=== PATIENT | female | born 1985 | race Caucasian/White ===

== ENCOUNTER → 2016-07-27 | Day surgery (SDC) | payer BC ==
[2016-07-12 13:22] VITALS: Ht 157.5 cm; Wt 58.2 kg
--- NOTE | 2016-07-24 10:33 | HISTORY & PHYSICAL EXAMINATION ---
DATE OF ADMISSION: 07/27/16 CHIEF COMPLAINT: Desire for permanent sterilization. HISTORY OF PRESENT ILLNESS: The patient is a 30-year-old 13, para 3. General health is good. She is on Wellbutrin 300 mg extended release once in the morning. She is uncertain when her last menstrual period. She is using a NuvaRing for control. She has been instructed to continue to use the ring until after the tubal ligation is done. She is presently being scheduled for laparoscopic tubal ligation. She has been informed of the nature of the procedure of tubal ligation including the fact that this procedure is intended to result in permanent and irreversible sterility and that the procedure can fail and the patient get despite having had her tubes tied. She has also been made aware of alternative temporary forms of control. PAST MEDICAL HISTORY: Three children in good health. ALLERGIES: ALLERGIC TO PENICILLIN, CODEINE, AND MORPHINE. PAST SURGICAL HISTORY: She has had appendectomy. She has had D\T\C, D\T\E and she had laparoscopic eval for endometriosis. SOCIAL HISTORY: She is a half pack a day smoker for 11 years. She has quit. No history of excessive alcohol intake. 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 FAMILY HISTORY: Mom is 52 in good health, dad 62 in good health. Has 2 brothers in good health. REVIEW OF SYSTEMS: HEAD: No symptoms of frequent or severe headaches. EYES: No symptoms of blurred vision, double vision. EARS: No symptoms of frequent ear infections, difficulty hearing. NOSE: No symptoms of frequent nosebleeds, difficulty breathing through her nose. THROAT: No symptoms of frequent or severe sore throats, difficulty swallowing. RESPIRATORY SYSTEM: No history of asthma, chest pain, shortness of breath. PHYSICAL EXAMINATION: GENERAL: Well developed, well-nourished 30-year-old white female, alert, oriented x3 and cooperative in no acute distress, appears stated age. EYES: Conjunctivae are pink. Sclerae are white. No evidence of jaundice. EARS: Had normal light reflex bilaterally. NOSE: Had normal mucosa. Septum is midline. There were no polyps. THROAT: No erythema or evidence of infection. Teeth are in good state of repair. HEAD: Normocephalic, normal distribution of hair. NECK: Supple. Trachea midline. Thyroid is not enlarged. There is no adenopathy appreciated. Both carotids are of good intensity. CHEST: Clear to auscultation and percussion. No wheezes, rales or rhonchi appreciated. HEART: Had regular rhythm. S1 and S2 are normal. BREASTS: Normal. ABDOMEN: Revealed an umbilical ring. ABDOMEN: Soft and nontender. PELVIC: Normal appearing cervix. Uterus was anteverted, normal size. There are no adnexal masses appreciated. MUSCULOSKELETAL: Revealed no calf tenderness. IMPRESSIONS OF THIS CASE: Status post appendectomy, status post dilatation and curettage, status post dilatation and evacuation, status post laparoscopic evaluation, endometriosis, desire for permanent sterilization. MTDD
[2016-07-24 10:52] LABS: BASO % 0.4 %; BASO ABS # 0.02 K/uL (0-0.2); COMPLETE YES; EOS % 1.7 %; HEMATOCRIT 40.6 % (37-47); IG% 0.4 %; LYMPH % 30.6 %; LYMPH ABS # 1.66 K/uL (1.2-3.4); MEAN CELL VOLUME 88.8 fL (80-100); MEAN CORPUSCULAR HEMOGLOBIN 30.9 pg (25-34); MEAN CORPUSCULAR HGB CONC 34.7 g/dl (32-36); MEAN PLATELET VOLUME 10.2 fL (7.4-10.4); MONO % 6.3 %; NEUT % 60.6 %; PLATELET COUNT 196 K/uL (130-400); RED BLOOD COUNT 4.57 M/uL (4.2-5.4); WHITE BLOOD COUNT 5.42 K/uL (4.8-10.8)
[2016-07-24 11:12] LABS: PREG INTERNAL NEGATIVE QC NEG CLEAR BACKGROUND; PREG INTERNAL POSITIVE QC POS CONTROL LINE
[~2016-07-27] VITALS: Ht 157.5 cm; Wt 58.2 kg
[~2016-07-27] MED LIST: ATROPINE SULFATE 0.1 MG/ML 5ML SYR IV PRN; BUPIVACAINE 0.5 % 5 MG/1 ML PF 10ML VIAL ONE; BUPIVACAINE/EPINEPHRINE 0.5% MPF 1:200,000 30 ML VIAL ONE; BUPRTAB51 PO; DEXAMETHASONE SOD INJ 4 MG/ML VIAL ONE; ESCI10TA17 PO; EpHEDrine SULFATE INJ 50 MG/ML AMP IV PRN; FENTANYL CITRATE INJ 50 MCG/1 ML 2 ML VIAL ONE; GLYCOPYRROLATE INJ 0.2 MG/ML VIAL ONE; IBUPROFEN 600 MG TAB PO PRN; KETOROLAC TROMETHAMINE 30 MG/ML VIAL IV. PRN; KETOROLAC TROMETHAMINE 30 MG/ML VIAL ONE; LIDOCAINE HCL 2% 2 ML VIAL (20MG/ML) ONE; LORA-741 PO; MIDAZOLAM HCL 1 MG/ML 2ML VIAL ONE; MULT-506 PO; NEOSTIGMINE METHYLSULFATE 5 MG/5 ML SYR ONE; ONDANSETRON INJ 2 MG/ML 2 ML VIAL IV PRN; ONDANSETRON INJ 2 MG/ML 2 ML VIAL ONE; PROPOFOL IV EMULSION 10 MG/ML 20 ML VIAL IV ONE; ROCURONIUM BROMIDE 10 MG/ML 5 ML VIAL ONE; SODIUM CHLORIDE 0.9% 1000ML 1,000 ML IV SCH
[2016-07-27] MEDS: SODIUM CHLORIDE 0.9% INJ 10 ML VIAL ONE ×2 (09:23→11:17)
--- NOTE | 2016-07-27 09:26 | History & Physical Bridge Note ---
H&P Re-Evaluation Bridge Note: I have examined the patient, reviewed the History & Physical and in the interval since the performance of the History & Physical I have noted the following changes of clinical significance: No changes noted
--- NOTE | 2016-07-27 11:32 | [facility] Operative Report ---
Operative Report Operative Date Jul 27, 2016. Pre-Operative Diagnosis Desires Sterilization Post-Operative Diagnosis Same Procedure(s) Performed Laparoscopic Tubal Sterilization Surgeon Dr. Vega Admission Nurse Coordinator Surgeon(s) None Estimated Blood Loss 5 mL Findings NORMAL PELVIS Specimens None Disposition Recovery Room / PACU I attest to the content of the Intraoperative Record and any orders documented therein. Any exceptions are noted below.
--- NOTE | 2016-07-27 11:35 | Discharge Instructions-SurgCtr ---
Discharge Instructions Date of Service Jul 27, 2016. Visit Reason for Visit: Desire For Sterilization;Pre-Op Z30.2 Discharge Discharge Diagnosis / Problem: DESIRE FOR PERMANENT Discharge Goals Goal(s): Improve function Activity Recommendations Activity Limitations: as noted below SPECIAL CARE INSTRUCTIONS: * Check temperature twice daily for one week. Report any elevation over 100.4 degrees Fahrenheit (38.0 degrees Celsius). * Call office in the next few days for return appointment. * You may experience some vaginal spotting and/or bleeding, this is normal for one or two weeks and should not alarm you. * Post-operative discomfort may consist of a sore throat, a "bloated" feeling and pain in the shoulders. These are normal symptoms which usually only last for two or three days. FOLLOW UP VISIT: Keep any scheduled doctor appointments. Anesthesia . Post Anesthesia Instructions: If you have had General Anesthesia or IV Sedation: * Do not drive today. * Resume driving when surgeon permits. * Do not make important decisions or sign legal documents today. * Call surgeon for: 1. Temperature elevations greater than 101 degrees F. 2. Uncontrollable pain. 3. Excessive bleeding. 4. Persistent nausea and vomiting. 5. Medication intolerance (nausea, vomiting or rash). * For nausea and vomiting use only clear liquids such as: tea, soda, bouillon until nausea subsides, then gradually increase diet as tolerated. * If you have any concerns or questions, call your surgeon's office. If physician is unavailable and it is an emergency, call 911 or go to the nearest emergency room. . Diet Recommendations Home Diet: resume previous diet Procedures Procedures Performed: Laparoscopic Tubal Sterilization Pending Studies Studies pending at discharge: no Medical Emergencies . Who to Call and When: Medical Emergencies: If at any time you feel your situation is an emergency, please call 911 immediately. . Non-Emergent Contact Non-Emergency issues call your: Saw Cleaner Call Non-Emergent contact if: temperature is above 100.5 . . "Provider Documentation" section prepared by Sean Vega.
--- NOTE | 2016-07-27 11:47 | OPERATIVE REPORT ---
DATE OF OPERATION: 07/27/2016 PROCEDURE: Laparoscopic tubal ligation. INDICATIONS FOR SURGERY: Desire for permanent sterilization. PREOPERATIVE DIAGNOSIS: Desire for permanent sterilization. POSTOPERATIVE DIAGNOSES: Same, normal pelvis. SURGEON: Dr. Vega. ESTIMATED BLOOD LOSS: 5 mL. ANESTHESIA: General. OPERATIVE FINDINGS AND PROCEDURE: The patient was brought to the OR table, correctly identified by armband and conversation. General anesthesia was administered. Perineum, vagina and lower abdomen were painted with Betadine paint, draped in usual sterile fashion. Catheter was used to empty the bladder. Careful pelvic exam under anesthesia revealed an anteverted uterus. There were no adnexal masses appreciated. Weighted speculum was placed in the posterior vagina. Anterior lip of the cervix grasped with single tooth tenaculum. An acorn cannula was inserted to cervical canal for manipulation of the uterus. Attention was now turned to the umbilical area. Subumbilical area was infiltrated with lidocaine with epinephrine. Stab wound was placed and a Veress needle was inserted into the abdominal cavity. 2-1/2 liters of carbon dioxide gas was passed under low pressure. Incision was then widened laterally and a large cannula and trocar was inserted. Trocar was removed and laparoscope was inserted. A second puncture site was made in the midline 3 fingerbreadths above the pubic symphysis, this area was also infiltrated with local with epinephrine. Stab wound was placed and a 5 mm trocar and sleeve was inserted under direct visualization. Trocar was removed. A blunt probe was used to manipulate the bowels out of the pelvic cavity and expose the pelvis. Cul-de-sac was normal, tubes were freely mobile, ovaries were mobile and bladder flap was mobile. Each fallopian tube was grasped in the mid portion of the tube and cauterized in 2 consecutive and adjacent areas. The cautery going through the tube and into the mesosalpinx, this was done for both the right and left fallopian tube and then the laparoscopic scissors was used to divide the cauterized areas. Photographs were taken of the cauterized and divided tubes. Following this, gas was expressed manually. Ports were cleansed with Betadine and sutured with interrupted Vicryl. I attest to the content of the Intraoperative Record and any orders documented therein. Any exceptio ns are noted below.
[2016-07-27] MEDS: FENTANYL CITRATE INJ 50 MCG/1 ML 2 ML VIAL IV PRN ×2 (12:05→12:12)
--- NOTE | 2016-07-27 12:13 | Anesthesia Progress Nt - [facility] ---
Anesthesia Post Op Note Date & Time Jul 27, 2016 at 12:13 Vital Signs Pain Intensity: 4.0 Vital Signs Past 12 Hours Date Time Temp Pulse Resp B/P Pulse Ox O2 Delivery O2 Flow Rate FiO2 07/27/16 11:42 37 130 16 122/110 100 Mask 6 07/27/16 09:11 36.8 82 16 134/85 98 Room Air Notes Mental Status: alert / awake / arousable, participated in evaluation Pt Amnestic to Procedure: Yes Nausea / Vomiting: adequately controlled Pain: adequately controlled Airway Patency, RR, SpO2: stable & adequate BP & HR: stable & adequate Hydration State: stable & adequate Anesthetic Complications: no major complications apparent
[2016-07-27 12:27] VITALS: TEMP 36.8
[2016-07-27 12:47] VITALS: BP 131/88; PULSE 93; O2SAT 98
== END | disposition home or self-care (01) ==
LOC: X.SURG 08:51
PROVIDERS: ATTEND Obstetrics & Gynecology
DX: Z30.9 Encounter for contraceptive management, unspecified (principal); Z90.49 Acquired absence of other specified parts of digestive tract; Z98.890 Other specified postprocedural states; Z88.0 Allergy status to penicillin; Z88.5 Allergy status to narcotic agent

== ENCOUNTER 2017-01-19 22:40 | Emergency (ER) | payer BC ==
[~2017-01-19] VITALS: Ht 154.9 cm; Wt 60.4 kg
[~2017-01-19 22:40] MED LIST changes: -ATROPINE SULFATE 0.1 MG/ML 5ML SYR IV PRN; -BUPIVACAINE 0.5 % 5 MG/1 ML PF 10ML VIAL ONE; -BUPIVACAINE/EPINEPHRINE 0.5% MPF 1:200,000 30 ML VIAL ONE; -DEXAMETHASONE SOD INJ 4 MG/ML VIAL ONE; -EpHEDrine SULFATE INJ 50 MG/ML AMP IV PRN; -FENTANYL CITRATE INJ 50 MCG/1 ML 2 ML VIAL ONE; -GLYCOPYRROLATE INJ 0.2 MG/ML VIAL ONE; -IBUPROFEN 600 MG TAB PO PRN; -KETOROLAC TROMETHAMINE 30 MG/ML VIAL IV. PRN; -KETOROLAC TROMETHAMINE 30 MG/ML VIAL ONE; -LIDOCAINE HCL 2% 2 ML VIAL (20MG/ML) ONE; -MIDAZOLAM HCL 1 MG/ML 2ML VIAL ONE; -NEOSTIGMINE METHYLSULFATE 5 MG/5 ML SYR ONE; -ONDANSETRON INJ 2 MG/ML 2 ML VIAL IV PRN; -ONDANSETRON INJ 2 MG/ML 2 ML VIAL ONE; -PROPOFOL IV EMULSION 10 MG/ML 20 ML VIAL IV ONE; -ROCURONIUM BROMIDE 10 MG/ML 5 ML VIAL ONE; -SODIUM CHLORIDE 0.9% 1000ML 1,000 ML IV SCH
[2017-01-19 22:49] VITALS: TEMP 36.4; Ht 154.9 cm; Wt 60.4 kg
--- NOTE | 2017-01-19 23:11 | EMERGENCY ROOM VISIT NOTE ---
History First contact with patient: 22:53 Chief Complaint: SORETHROAT Stated Complaint: SORETHROAT/TONGUE,FEVER,COUGH History of Present Illness The patient is a 31 year old female who presents to the Emergency Room with complaints of sore throat for the past 3-4 days. She states that her tongue feels swollen. It attaches in the back of her mouth. The patient also states for the past week she has been sneezing a lot. She denies any head congestion but does admit to some postnasal drainage. The patient also states today she was running a low-grade fever of 99.8-100.4. She has been taking Tylenol for the fever. The patient also states that she has been coughing for the past 2-3 days. The patient denies any chest tightness or chest pain. The patient admits to tobacco use. Review of Systems 10 system review was performed and was negative unless stated otherwise history of present illness. Past Medical/Surgical History Medical Problems: (1) Calculus Of Kidney (2) Calculus Of Ureter (3) COUGH (4) Headache Social History Smoking Status: Current Every Day Smoker Alcohol Use: none Drug Use: none Occupation Status: employed Current/Historical Medications Scheduled Bupropion Hcl (Wellbutrin Xl), 300 MG PO QAM Escitalopram (Lexapro), 10 MG PO HS Multivitamin (Multivitamin), 1 TAB PO QAM Scheduled PRN Lorazepam (Ativan), 0.5 MG PO Q6H PRN for Anxiety Physical Exam Vital Signs Date Time Temp Pulse Resp B/P (MAP) Pulse Ox O2 Delivery O2 Flow Rate FiO2 01/19/17 23:05 98 Room Air 01/19/17 22:49 36.4 94 18 134/88 99 Room Air Physical Exam PHYSICAL EXAM: Vital Signs were reviewed: Reviewed Nurse's notes and agree. Oxygen saturation is 99 % on room air which is normal . GENERAL: 31-year-old female appears in no acute distress. MENTAL STATUS: Alert, oriented, coherent. EARS: Canals clear. TMs good light reflex, no erythema or fluid level noted. NOSE: Nasal mucosa with moderate erythema engorgement. PHARYNX: Minimal erythema , no edema noted. No exudate noted. Airway is adequate. NECK: Supple, tender to palpation over the anterior cervical chains bilaterally but no palpable lymphadenopathy... LUNGS: Clear to auscultation without wheezes rales or rhonchi. CARDIAC: Regular rate and rhythm without murmur. SKIN: No rashes noted. Medical Decision & Procedures ED Course The patient was evaluated. Rapid strep was negative, culture is pending. The patient was informed of the findings. The patient was discharged home in stable condition. Medical Decision Differential diagnosis include strep pharyngitis, URI, viral pharyngitis, Impression Primary Impression: Sore throat Additional Impression: URI (upper respiratory infection) Departure Information Dispostion Home / Self-Care Condition GOOD Referrals Sean Vega M.D. (PCP) Forms HOME CARE DOCUMENTATION FORM, IMPORTANT VISIT INFORMATION Patient Instructions [facility], Sore Throat - [facility] Additional Instructions Follow sore throat handouts instructions. Call in 24 hours for throat culture results. Continue Tylenol and/or ibuprofen as needed for fever or pain. Recommend aegw-eim-ersbivr antihistamine such as Claritin daily for 5-7 days. If symptoms are not improving in 3-4 days, follow-up with your family doctor. Problem Qualifiers Additional Impression: URI (upper respiratory infection) URI type: unspecified viral URI Qualified Codes: J06.9 - Acute upper respiratory infection, unspecified; B97.89 - Other viral agents as the cause of diseases classified elsewhere
[2017-01-19 23:28] VITALS: BP 131/86; PULSE 88; O2SAT 99
== END 2017-01-19 23:28 | disposition home or self-care (01) ==
LOC: C.EDB 22:42 → C.EDC 23:28
DX: J02.9 Acute pharyngitis, unspecified (principal); F17.210 Nicotine dependence, cigarettes, uncomplicated; Z87.442 Personal history of urinary calculi; Z79.899 Other long term (current) drug therapy

== ENCOUNTER → 2017-03-07 | Outpatient (CLI) | payer BC, OTHER ==
[~2017-03-07] MED LIST changes: -LORA-741 PO
== END | disposition home or self-care (01) ==
LOC: C.LABSPEC 12:04
PROVIDERS: ATTEND Physician Assistant
DX: N39.0 Urinary tract infection, site not specified (principal)

== ENCOUNTER → 2017-06-28 | Outpatient (CLI) | payer BC, OTHER | END | disposition home or self-care (01) | LOC: C.PAPS 15:26 | PROVIDERS: ATTEND Obstetrics & Gynecology | DX: Z01.419 Encounter for gynecological examination (general) (routine) without abnormal findings (principal) ==

== ENCOUNTER 2022-03-10 08:04 | Inpatient (IN) ==
--- NOTE | 2022-02-22 09:20 | PAT Medication Instructions ---
Medication Instructions Date of Service February 22, 2022 Home Medications Medication Instructions Recorded alprazolam 0.5 mg tablet (Xanax) 0.5 mg PO TID PRN Anxiety #90 tabs 01/18/21 bupropion HCl 150 mg 24 hr tablet, 150 mg PO QPM #30 tabs 10/06/21 extended release bupropion HCl 300 mg 24 hr tablet, 300 mg PO QAM #30 tabs 10/06/21 extended release ciprofloxacin HCl 500 mg tablet 500 mg PO BID 7 days #14 tabs 11/07/21 fluocinonide 0.05 % topical 1 applic topical DAILY PRN rash 01/20/22 ointment #15 grams fluconazole 150 mg tablet 150 mg PO ONCE #1 tab 02/17/22 (Diflucan) sulfamethoxazole 800 1 tab PO BID 7 days #14 tabs 02/17/22 mg-trimethoprim 160 mg tablet (Bactrim DS) alprazolam 0.5 mg tablet (Xanax) 0.5 mg PO TID PRN bupropion HCl 150 mg 24 hr tablet, extended release 150 mg PO QPM bupropion HCl 300 mg 24 hr tablet, extended release 300 mg PO QAM ciprofloxacin HCl 500 mg tablet 500 mg PO BID fluocinonide 0.05 % topical ointment 1 applic topical DAILY PRN fluconazole 150 mg tablet (Diflucan) 150 mg PO ONCE sulfamethoxazole 800 mg-trimethoprim 160 mg tablet (Bactrim DS) 1 tab PO BID Continue as directed fluconazole 150 mg tablet (Diflucan) 150 mg PO ONCE STOP taking 24 hours before surgery fluocinonide 0.05 % topical ointment 1 applic topical DAILY PRN Take morning of surgery With a small sip of water, OTHERWISE NOTHING TO EAT OR DRINK AFTER MIDNIGHT: alprazolam 0.5 mg tablet (Xanax) 0.5 mg PO TID PRN(if needed) bupropion HCl 300 mg 24 hr tablet, extended release 300 mg PO QAM ciprofloxacin HCl 500 mg tablet 500 mg PO BID sulfamethoxazole 800 mg-trimethoprim 160 mg tablet (Bactrim DS) 1 tab PO BID Take evening before surgery alprazolam 0.5 mg tablet (Xanax) 0.5 mg PO TID PRN(if needed) bupropion HCl 150 mg 24 hr tablet, extended release 150 mg PO QPM ciprofloxacin HCl 500 mg tablet 500 mg PO BID sulfamethoxazole 800 mg-trimethoprim 160 mg tablet (Bactrim DS) 1 tab PO BID Other Notes If you have any questions please call us at [phone] or [phone] or [phone] or [phone]
--- NOTE | 2022-02-23 10:14 | Anesthesiology Consultation ---
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 Zhu who advised pt acceptable to proceed and does not need further evaluation, testing or intervention from his standpoint. - check urine test STAT am DOS. - PTSD: pt has concerns with OR restraints, requests she be asleep before applied. OR notified. Chart Review Chart Review: Acceptable Risk for Surgery and Patient seen in Pre Admission Testing Teaching & Discussion Pre-Anesthesia Teaching/Discussion Notes: Instructed NPO after midnight before surgery, except medications with 15 cc of water. Medication instructions provided according to the PAT guidelines. History Surgery Operation Date: 03/10/22 13:35 Proposed Procedures p Total Abdominal Hysterectomy, Preservation of the Ovaries - Sean Vega MD Height/Weight Height: 5 ft 1 in Weight: 54.9 kg Allergies Allergy/AdvReac Type Severity Reaction Status Date / Time morphine Allergy Severe SEVERE Verified 02/21/22 15:35 HEADACHES AND NECK PAIN Penicillins Allergy Intermediate HIVES, Verified 02/21/22 15:35 NAUSEA codeine AdvReac Intermediate NAUSEA, Verified 02/21/22 15:35 VOMITING Medications Home Medications Medication Instructions Recorded Confirmed Last Taken alprazolam 0.5 mg tablet (Xanax) 0.5 mg PO TID PRN Anxiety #90 tabs 01/18/21 02/21/22 06/15/21 bupropion HCl 150 mg 24 hr tablet, 150 mg PO QPM #30 tabs 10/06/21 02/21/22 Unknown extended release bupropion HCl 300 mg 24 hr tablet, 300 mg PO QAM #30 tabs 10/06/21 02/21/22 Unknown extended release ciprofloxacin HCl 500 mg tablet 500 mg PO BID 7 days #14 tabs 11/07/21 02/21/22 Unknown fluocinonide 0.05 % topical 1 applic topical DAILY PRN rash 01/20/22 02/21/22 Unknown ointment #15 grams fluconazole 150 mg tablet 150 mg PO ONCE #1 tab 02/17/22 02/21/22 Unknown (Diflucan) sulfamethoxazole 800 1 tab PO BID 7 days #14 tabs 02/17/22 02/21/22 Unknown mg-trimethoprim 160 mg tablet (Bactrim DS) Past Medical History Medical History (Updated 02/23/22 @ 15:42 by Alejandra Reddy PA-C) Anxiety and depression COVID-19 DX'D 06/2021 HOME TEST-SOB, LOSS APETITE, HEADACHE-RECOVERED AT HOME-GETS SOB MORE EASILY SINCE COVID RECOVERY GERD (gastroesophageal reflux disease) controlled, stable per pt Kidney stones Migraine Post traumatic stress disorder pt has concerns with OR restraints, requests she be asleep before applied Pulmonary nodule Seizure following second COVID vaccine dose > 1 yr ago; denies any additional episodes of altered consciousness Suicidal ideations HX 2007 Urinary tract infection FREQUENT Patient denies h/o stroke, heart attack, heart failure, DM, HTN, blood clots or blood transfusions. Exercise / Class Metabolic Activity III < 4 Walking/Shop/Light housework (mild SOB with usual activities ongoing since having COVID earlier this year, denies change or worsening, denies chest discomfort) Past Family History Family History Grandmother Breast cancer Myocardial infarction Father Diabetes Aunt Ovarian cancer Denies family history of Prostate cancer Past Surgical History Surgical History History of appendectomy History of cystoscopy STENT FOR KIDNEY STONES History of laparoscopy History of lithotripsy History of tubal ligation History of wisdom tooth extraction S/P dilation and curettage Past Anesthesia History No Hx of Anesthesia Complications and No Family Hx of Anesthesia Complications History of PONV No Hx of PONV and Hx of Motion Sickness Social History Smoking Status: Current every day smoker tobacco type: cigarettes Smoking cigarettes per day: 4-5 CIGS A DAY-advised Do You Dip or Chew Tobacco: No Hx Alcohol Use: Yes Alcohol type: hard liquor alcohol intake frequency: a few times a month Hx Substance Use: No substance use type: does not use Review of Systems Patient denies chest pain, snoring, witnessed apneas, fever, chills, cough, wheezing, or palpitations. Physical Exam Vital Signs Vitals BP 119/80 P 72 TEMP 98 SP02 98% on RA RESP 18 Physical Full cervical extension range of motion without pain TMD 3.5 finger breadths Mallampati Score 1 Dentition: intact, several caps/crowns; denies chipped or loose teeth, implants or bridges Lungs: normal respiratory effort. Clear throughout to auscultation, no adventitious breath sounds Cardiac: regular rate and rhythm, no murmurs noted Carotid arteries: negative bruit bilat Lab Results Anesthesia Preop Results Results Anesthesia Widget: WBC 4.75 K/ul (4.8-10.8) L 02/23/22 Hgb 13.6 g/dl (12.0-16.0) 02/23/22 Hct 38.9 % (34.1-44.9) 02/23/22 Plt 260 K/uL (130-400) 02/23/22 Na 139 mmol/L (136-145) 02/23/22 K 3.7 mmol/L (3.5-5.1) 02/23/22 Cl 105 mmol/L (98-107) 02/23/22 CO2 29 mmol/L (21-32) 02/23/22 BUN 11 mg/dl (6-23) 02/23/22 Creat 0.88 mg/dl (0.6-1.2) 02/23/22 Glucose Level 92 mg/dl (70-99(Fasting)) 02/23/22 PT 11.0 Seconds (9.0-12.0) 02/23/22 PTT 26.9 Seconds (21.0-31.0) 02/23/22 INR 1.0 (0.9-1.1) 02/23/22 Blood Type A Positive 02/23/22 Antibody Screen NEGATIVE 02/23/22 Testing Electrocardiogram Date: 06/16/21 NSR with sinus arrhythmia, rate 77 bpm Chest X-Ray Date: 06/16/21 *1 view* No acute cardiopulmonary disease Cervical Spine Date: 08/26/21 CT There is no evidence of fracture or subluxation involving the cervical spine. Other Testing Head CT 08/26/21 No acute intracranial abnormality. Mild left supraorbital soft tissue swelling. Face CT 08/26/21 No fractures within the maxillofacial region. Mild left supraorbital soft tissue swelling. Chest CT 08/26/21 1. No acute abnormality and in particular no left rib fracture. 2. Multiple nodules are seen as above. Abdomen pelvis CT 08/26/21 Lung bases: The heart is normal in size and without pericardial effusion. The lung bases are clear. Liver: The contrast-enhanced liver is normal in size, contour, and attenuation. There is no intrahepatic biliary ductal dilatation. The hepatic veins and portal veins are patent. Gallbladder: There are gallstones with no CT evidence of acute cholecystitis. Spleen: Normal in size and attenuation. Pancreas: Unremarkable. Adrenal glands: Unremarkable. Kidneys: The contrast enhanced kidneys are normal in size and without hydronep hrosis. The kidneys enhance symmetrically. There is a 3 mm nonobstructing left renal calculus. Abdominal vasculature: The abdominal aorta is normal in course and caliber. Bowel: There is no bowel obstruction. Fecal retention is seen throughout the colon. The appendix is not identified and reported surgically absent. Peritoneum: There is no intraperitoneal free air or abdominal ascites. There is a small fat-containing umbilical hernia. Lymphadenopathy: None. Pelvic viscera: The bladder is normal as visualized. There are bilateral ovarian follicles. An involuting follicle is noted in the right ovary. Uterine fibroids are suggested. There is a small volume of free fluid in the cul-de-sac. A labial piercing is noted. Skeletal structures: The lumbosacral spine, bony pelvis, and proximal femora appear intact. No lytic or blastic lesions are seen. IMPRESSION: 1. There is no evidence of solid organ injury in the abdomen or pelvis. 2. A small volume of free fluid in the cul-de-sac is nonspecific and likely within physiologic limits. 3. No fracture is identified. 4. Cholelithiasis. 5. Left-sided nephrolithiasis. 6. Additional findings as above. Neck CTA 08/26/21 No occlusion, hemodynamically significant stenosis, or dissection in the major cervical arteries. COVID-19 Risk Screen Screening Information COVID-19 Screen Date: 02/23/22 Exposure 21 Days Family/Household +COVID Last 21 Days: No Exposure 10 Days Any COVID Exposure Last 10 Days: No Symptoms Last 10 Days Experienced COVID Sx Last 10 Days: No + COVID 0-90 Days COVID + in Last 0-90 Days: No
[~2022-03-10 08:04] MED LIST changes: +ACETAMINOPHEN 1000 MG/100 ML IV IV ONE; +ALLERGY Noted to ORDERED Medication SCH; -BUPRTAB51 PO; -ESCI10TA17 PO; +LR 15ML/HR IV SCH; -MULT-506 PO; +SUGAMMADEX SODIUM 200 MG/2 ML VIAL IV ONE
[2022-03-10] MEDS ORDERED: MIDAZOLAM HCL 1 MG/ML 2ML VIAL ONE (08:57)
[2022-03-10] MEDS ORDERED: DEXAMETHASONE SOD INJ 4 MG/ML VIAL ONE ×2 (08:57→11:28)
[2022-03-10] MEDS ORDERED: LIDOCAINE 2% MPF LOCAL 5 ML VIAL INFIL ONE ×2 (08:57→11:29)
[2022-03-10] MEDS ORDERED: ROCURONIUM BROMIDE 10 MG/ML 5 ML VIAL IV ONE ×4 (08:57→11:44)
[2022-03-10] MEDS ORDERED: PROPOFOL IV EMULSION 10 MG/ML 20 ML VIAL IV ONE ×2 (08:57→11:29)
[2022-03-10] MEDS ORDERED: ONDANSETRON INJ 2 MG/ML 2 ML VIAL ONE ×4 (08:57→12:45)
[2022-03-10] MEDS ORDERED: fentaNYL citrate 100 MCG/2 ML VIAL ONE ×2 (08:57→12:46)
[2022-03-10] MEDS ORDERED: SCOPOLAMINE 1 MG TDSY TD ONE ×2 (09:02→09:17)
[2022-03-10] MEDS ORDERED: ONDANSETRON INJ 2 MG/ML 2 ML VIAL IV PRN (09:08)
[2022-03-10] MEDS ORDERED: fentaNYL citrate 100 MCG/2 ML VIAL IV PRN (09:08)
[2022-03-10] MEDS ORDERED: LABETALOL HCL IV 5 MG/ML 20ML IV PRN (09:08)
[2022-03-10] MEDS ORDERED: MEPERIDINE HCL 25 MG/ML CARP/VIAL IV PRN (09:08)
[2022-03-10] MEDS ORDERED: ePHEDrine sulfate 50 MG/ML AMP IV PRN ×2 (09:08→09:09)
[2022-03-10] MEDS ORDERED: ATROPINE SULFATE 0.1 MG/ML 10ML SYR IV PRN (09:08)
[2022-03-10] MEDS ORDERED: PHENYLEPHRINE 100MCG/ML 5ML SYR IV PRN (09:08)
[2022-03-10] MEDS ORDERED: NALOXONE HCL 1 MG in SODIUM CHLORIDE 0.9% 1000ML 1,000 ML IV PRN (09:09)
[2022-03-10] MEDS ORDERED: MoRPHine SULFATE PF 1 MG/ML 10 ML AMP/VIAL INT SPINAL ONE (09:09)
[2022-03-10] MEDS ORDERED: NALBUPHINE HCL INJ 10 MG/ML AMP IV PRN (09:09)
[2022-03-10] MEDS ORDERED: NALOXONE HCL 0.4 MG/1 ML VIAL/CARP IV PRN (09:09)
[2022-03-10] MEDS ORDERED: NALOXONE HCL 0.08 MG in SYRINGE 1.8 ML IV PRN (09:09)
[2022-03-10] MEDS ORDERED: LACTATED RINGER'S 500 ML IV PRN (09:09)
[2022-03-10] MEDS ORDERED: SODIUM CHLORIDE 0.9% 1000ML 1,000 ML IV SCH (09:15)
[2022-03-10] MEDS ORDERED: DC INTRASPINAL MORPHINE SCH (09:15)
[2022-03-10] MEDS ORDERED: NO NARCOTICS OR SEDATIVES SCH (09:15)
[2022-03-10] MEDS ORDERED: MoRPHine SULFATE PF 1 MG/ML 10 ML AMP/VIAL ONE (10:43)
--- NOTE | 2022-03-10 10:53 | History & Physical Bridge Note ---
Date of Service March 10, 2022 History & Physical Bridge Note I have examined the patient, reviewed the History & Physical and in the interval since the performance of the History & Physical I have noted the following changes of clinical significance: no changes noted
--- NOTE | 2022-03-10 13:13 | Post Operative Brief Note ---
Immediate Post Op Note v1 Date of Surgery March 10, 2022 Pre & Post Diagnosis Operation Date: 03/10/22 09:50 Pre-Op Diagnosis: Fibroid Uterus, hypermenorrhea pelvic pain Post-Op Diagnosis: Fibroid Uterus, hypermenorrhea I identified the patient and participated in the time-out.: Yes Procedure Operation Date: 03/10/22 09:50 Actual Procedures p Total Abdominal Hysterectomy, Preservation of the Ovaries(Not Applicable) - Sean Vega MD Surgeon Sean Vega MD Mess Attendant Crew [facility] Estimated Blood Loss 200 Findings Consistent with Post-Op Diagnosis Drains Archer Catheter, Chace Drain (with one safety pin in the vaginal cuff) and Other Disposition Disposition: Recovery Room
[2022-03-10] MEDS ORDERED: MEPERIDINE HCL 50 MG/ML CARP ONE (13:29)
[2022-03-10] MEDS ORDERED: KETOROLAC 30 MG/ML VIAL ONE (13:29)
[2022-03-10] MEDS ORDERED: KETOROLAC 30 MG/ML VIAL IV ONE (13:30)
[2022-03-10] MEDS ORDERED: MEPERIDINE HCL 25 MG/ML CARP/VIAL IV ONE (13:31)
[2022-03-10] MEDS: diphenhydrAMINE 50 MG/ML VIAL IV PRN ×2 (13:57→20:23)
--- NOTE | 2022-03-10 14:28 | Operative Report (OR) ---
DATE OF PROCEDURE: 03/10/2022. PROCEDURE: Total abdominal hysterectomy. INDICATIONS FOR SURGERY: Pelvic pain, fibroid uterus, increasing in size. PREOPERATIVE DIAGNOSES: Hypermenorrhea, pelvic pain, fibroid uterus, increasing in size. POSTOPERATIVE DIAGNOSES: Hypermenorrhea, pelvic pain, fibroid uterus, increasing in size. Pathology pending. SURGEON: Keturah Vega MD COMPLIANCE ADMINISTRATOR: Yazan Tan MD. ESTIMATED BLOOD LOSS: 200 mL. ANESTHESIA: General with spinal narcotics. OPERATIVE FINDINGS AND PROCEDURE: The patient was brought to the OR table. Spinal narcotics were ad ministered. She was given general anesthesia. Vaginal prep was performed. The Archer catheter was i nserted aseptically in the bladder, connected to gravity drainage. Lower abdomen was painted with an alcohol based sterilizing solution and draped in the usual sterile fashion. Pfannenstiel incision w as made and carried down to the anterior fascia by sharp dissection. Hemostasis was secured by elect rocauterization. Fascia was incised transversely from the underlying muscle by blunt and sharp dissection. Recti muscles were in the midline exposing the peritoneum, which was car efully raised and entered. Then, an O'Miguel Angel-O'Lewis self-retraining retractor was inserted into the incision and several moist laparotomy packs were used to retract the intestines and provide adequ ate exposure of the pelvic cavity. At this time, we could see both tubes, which were status post tub al ligation. Fibroid uterus on the patient's left side about 5-6 cm in diameter and it went down to about the fundal cervical junction. Round ligaments on either side were clamped proximally, then dist ally. They were ligated with a transfixion suture and tagged and then distal to that with a plain si lk tie for additional hemostasis. Incision was made above the vesicouterine fold. Bladder was under mined bluntly. Posterior leaf of the broad ligament was punched through bluntly. The attachment of the ovary and tube to the fundus of the uterus was clamped proximally and distally, cut with electroc auterization. Then, the distal stump of the tube and ovarian ligament were first ligated with a huffman sfixion suture of chromic catgut and tied and then re-ligated with a free silk tie for hemostasis. T his was done on both the right and left side. The bladder was continued to be advanced out of the op erative field. The uterine vessels on either side were doubly clamped at the junction of the cervix and the fundus, cut and then doubly ligated with a chromic gut suture. We continued to advance the b ladder off the operative field. The cardinal ligaments were dissected off by sliding off the cervix with a curved [place] on the right and left side cutting with a stump and then ligating with a chromic gut suture. This was done in 3 steps because of the length of the cardinal ligament. We then used electrocauterization to shell the cervical specimen out and entered the vaginal cuff. We thus excise d the surgical specimen consisting of a fibroid uterus and cervix. The vaginal cuff was then sutured to the stumps of the cardinal ligaments on each side at the angles by going in and out of the cuff a nd then re-picking up the cuff and then tying it to the cardinal ligaments. This was done on both th e right and left side. Then, the vagina was approximated front to back at each angle using a chromic gut suture, which was anchored in the cardinal ligament, went from the cardinal ligament towards the center of the vagina, then from the center of the vagina to the cardinal ligament and then tied and then cut. The mid portion of the vaginal cuff was whipstitched open with a continuous chromic gut prince ture. After this, the posterior uterosacral ligaments were brought together with a heavy duty Vicryl by starting on the patient's left side close to the vaginal cuff, going posterior on the uterosacral ligament, then getting the right uterosacral ligament, then coming across and attaching it to the le ft uterosacral ligament distally and then going posteriorly and then tying. This obliterated part of the cul-de-sac to provide additional support for the vaginal cuff. The Erie drain with a safety p in was placed down into the vaginal cuff. The other end into the cul-de-sac. Round ligaments were b rought down and tied with a suture that was anchored to the cardinal ligaments on either side for add itional support. Then, I reperitonealized the edge by reperitonealizing from the right ovary to the middle, then from the left ovary to the middle, then tying to each other. Following this, hemostasis was good. Pelvis was washed of all blood clots and debris. The packs were removed. The pack and i nstrument count was good. The retractor was removed. Careful anatomical approximation of the anteri or abdominal wall was performed. The perineum was closed with continuous chromic gut suture. Recti muscles were approximated with interrupted [id number] suture of chromic catgut. Fascia was clos ed with continuous interlocking suture of Vicryl on each side, tied in the midline. Subcutaneous was approximated with continuous plain. The skin edges were approximated with staple clips. Job ID: [id number]
--- NOTE | 2022-03-10 14:30 | Anesthesiology Progress Note ---
Date of Service March 10, 2022 Anesthesia Post Procedure Vital Signs Vital Signs: Temp Pulse Pulse Resp BP Pulse Ox O2 Del Method 03/10/22 14:25 67 16 116/71 100 Nasal Cannula 03/10/22 14:10 37.0 C 72 14 117/63 98 Nasal Cannula 03/10/22 14:00 77 12 129/63 99 Nasal Cannula 03/10/22 13:40 75 13 120/73 93 Oxymask 03/10/22 13:50 88 15 131/77 95 Oxymask 03/10/22 13:30 78 19 127/69 100 Oxymask 03/10/22 13:20 36.4 C L 91 H 16 123/70 99 Oxymask 03/10/22 08:33 36.6 C 68 18 156/74 H 94 Room Air O2 Flow Rate 03/10/22 14:25 2 03/10/22 14:10 2 03/10/22 14:00 2 03/10/22 13:40 2 03/10/22 13:50 2 03/10/22 13:30 6 03/10/22 13:20 6 03/10/22 08:33 Pain Intensity Lower Abdomen: Pain Intensity: 3 Transfer of Care Handoff Completed per policy Notes Mental Status: alert / awake / arousable Patient Amnestic to Procedure: Yes Nausea / Vomiting: adequately controlled Pain: adequately controlled Airway Patency, RR, SpO2: stable & adequate BP & HR: stable & adequate Hydration State: stable & adequate Neuraxial Anesthesia: was administered and sensory block is resolving Anesthetic Complications: no major complications apparent and Pt Satisfied with anesthetic care
[2022-03-10] MEDS ORDERED: MAGNESIUM HYDROXIDE SUSP 30 ML UDC PO PRN (15:10)
[2022-03-10] MEDS ORDERED: KETOROLAC 30 MG/ML VIAL IV PRN (15:10)
[2022-03-10] MEDS ORDERED: SENNA 8.6 MG TAB PO PRN (15:10)
[2022-03-10] MEDS ORDERED: bisacodyL 10 MG SUPP PR PRN (15:10)
[2022-03-10] MEDS ORDERED: HYDROmorphone INJ 1 MG/ML SYRINGE IV STA (15:20)
--- NOTE | 2022-03-10 15:28 | Communication Note ---
Date of Service: March 10, 2022 The patient underwent a HIRAM under general anesthesia. She had a Duramorph spinal despite a history of severe headaches with morphine. She was given ket orolac and Ofirmev perioperatively as well fentanyl and meperidine in PACU. She now has 7/[address] pain [address] floor. The patient is agreeable to receiving a dose of IV Dilaudid. The patient has standard postop Duramorph spinal orders including continuous pulse oximetry. Dr. Boyer is propulsion engineer and was made aware of the patient.
[2022-03-10] MEDS: LACTATED RINGER'S 1,000 ML IV SCH (15:38)
[2022-03-10] MEDS ORDERED: CHECK SCOPOLAMINE PATCH PLACEMENT SCH (16:00)
[2022-03-10] MEDS ORDERED: ALPRAZolam 0.5 MG TABLET PO PRN (17:09)
[2022-03-11] MEDS ORDERED: PROMETHAZINE HCL 25 MG in SODIUM CHLORIDE 0.9% 50 ML IV PRN (03:09)
[2022-03-11] MEDS ORDERED: ONDANSETRON INJ 2 MG/ML 2 ML VIAL IV PRN (03:09)
[2022-03-11] MEDS ORDERED: MEPERIDINE HCL 50 MG/ML CARP IV PRN (03:09)
[2022-03-11 06:27] LABS: Hematocrit (blood only) 32.5 % (34.1-44.9); Hemoglobin 11.2 g/dl (12.0-16.0)
--- NOTE | 2022-03-11 08:30 | Obstetrical Progress Note ---
Date of Service March 11, 2022 Assessment & Plan Admission and Anticipated Discharge Date Admission Date: March 10, 2022 Subjective abdomen soft and non tender incision is clean and dry bandage removed no calf tenderness ambulating well vaginal bleeding scant hgb 11,2 Results & Data ([facility]) Vital Signs (Past 12 Hours) Vital Signs Temp Pulse Resp BP Pulse Ox O2 Del Method 03/11/22 03:35 36.8 C 68 16 95/60 L 96 Room Air 03/11/22 02:35 16 96 03/11/22 01:35 16 96 03/11/22 00:35 16 96 03/10/22 23:35 14 98 03/10/22 23:35 36.9 C 78 14 101/68 98 Room Air 03/10/22 22:26 16 99 03/10/22 21:30 16 100 03/10/22 20:30 16 98
[2022-03-11] MEDS: buPROPion XL 300 MG TABCR PO SCH (08:47)
[2022-03-11] MEDS: oxyCODONE/ACETAMINOPHEN 5mg/325mg TAB PO PRN ×3 (08:48→20:03)
[2022-03-11] MEDS: IBUPROFEN 600 MG TAB PO PRN ×3 (08:48→20:03)
[2022-03-11] MEDS ORDERED: buPROPion XL 150 MG TABCR PO SCH (21:00)
[2022-03-11] MEDS: LACTATED RINGER'S 1,000 ML IV SCH (22:58)
[2022-03-12] MEDS: oxyCODONE/ACETAMINOPHEN 5mg/325mg TAB PO PRN ×2 (04:11→07:38)
[2022-03-12] MEDS: IBUPROFEN 600 MG TAB PO PRN ×2 (04:11→07:38)
[2022-03-12] MEDS: buPROPion XL 300 MG TABCR PO SCH (07:38)
--- NOTE | 2022-03-12 07:52 | Obstetrical Progress Note ---
Date of Service March 12, 2022 Assessment & Plan Admission and Anticipated Discharge Date Admission Date: March 10, 2022 Subjective abdomen soft and non tender incision is clean and dry no calf tenderness ambulating well luz drain with safety pin removed from vaginal cuff vaginal bleeding scant hgb 11.2 Results & Data ([facility]) Vital Signs (Past 12 Hours) Vital Signs Temp Pulse Resp BP Pulse Ox O2 Del Method 03/11/22 20:27 36.9 C 69 18 119/69 99 Room Air
--- NOTE | 2022-03-12 09:01 | Discharge Summary (DS) ---
DATE OF SERVICE: 03/12/2022 HOSPITAL COURSE: The patient is a 36-year-old white female. She was admitted with symptoms of pelvi c pain, hypermenorrhea. She had been followed with a uterine fibroid for several years; however, ove r the past 6 months, it has gotten significantly larger on ultrasound, and is also causing pain and h eavy bleeding. She has had her tubes tied prior to this. The day she was admitted, she was given gen eral anesthesia along with spinal narcotics. She underwent total abdominal hysterectomy with preserv ation of the ovaries and suspension of the vaginal cuff. Postoperatively, she did well. Her preoper ative hemoglobin was 13.6. Postoperatively, hemoglobin fell to 11.2. Her bowel sounds returned with in 24 hours. First postoperative day, she was tolerating a full diet. Her bandage was removed. Her incision was clean and dry. Second postoperative day, she was able to ambulate well, get around and her pain was well controlled with a combination of Percocet and Motrin. She was discharged to be fo llowed in home and office, she was given instructions to call the office for removal of jasmyn and tamika morales prescriptions for Percocet and Motrin for pain control. Job ID: [id number]
== END 2022-03-12 10:30 | disposition home or self-care (01) | DRG 743 ==
LOC: ASU 08:04 → 4E1 13:22

== ENCOUNTER 2025-05-01 14:23 | Inpatient (IN) ==
--- NOTE | 2025-05-01 14:27 | Emergency Department Note ---
Impression & Plan Accidental heroin overdose, Elevated troponin, Hypokalemia ED Provider Note ED Provider Note NAME: SKYLA CASTILLO AGE:39 SEX: Female : 1985 ARRIVES VIA: EMS INFORMANT: Patient ED PROVIDER(s): Brooke Schaffer CHIEF COMPLAINT: Overdose HPI: 39-year-old female presents emergency room with complaints of Overdose. Patient reports that her boyfriend was on the phone with his counselor and had stopped responding, they were concerned so they called police, police director internal audit called EMS for a welfare check and patient's significant other was found reportedly unconscious from a drug overdose. They had then found her in the back room also unresponsive. EMS stated that there was concerned that a friend had mentioned Xanax as well as alcohol and that CPR had possibly been done on the patient prior to their arrival. State police had told the S crew that there was meth and fentanyl on scene and they gave 2 mg of intranasal Narcan. Patient herself has no complaints upon arrival to the emergency room. She specifically denies any chest pain, shortness of breath. She states the ambulance told her that her blood pressure was low so she had to come to the hospital. She is sleepy, but maintaining an airway and oxygenation. End-tidal was placed. PAST MEDICAL HISTORY:See Below PAST SURGICAL HISTORY:See Below FAMILY HISTORY:See Below SOCIAL HISTORY:See Below HOME MEDICATIONS:See Below ALLERGIES:See Below VITALS:See Below PHYSICAL EXAMINATION: GENERAL: sleepy, well appearing, well nourished, no distress, non-toxic EYE EXAM: normal conjunctiva, PERRL at 4mm and EOM's grossly intact OROPHARYNX: no exudate, no erythema, lips, buccal mucosa, and tongue normal and mucous membranes are moist NECK: supple, no nuchal rigidity, no adenopathy, non-tender LUNGS: Clear to auscultation. Normal chest wall mechanics, no w/r/r HEART: no murmurs, S1 normal and S2 normal ABDOMEN: abdomen soft, non-tender, normo-active bowel sounds, no masses, no rebound or guarding. BACK: Back is symmetrical on inspection and there is no deformity, no midline tenderness, no CVA tenderness. SKIN: no rashes, petechiae, orbruising UPPER EXTREMITIES: upper extremities are grossly normal. FROM, nml pulses b/l. LOWER EXTREMITIES: No pitting edema. FROM, nml pulses b/l. NEURO EXAM: Normal sensorium, normal speech,nogross weakness of arms, no gross weakness of legs. Gross sensation intact. No ataxia. Vital Signs: reviewed and remarkable Differential Diagnosis: Overdose, toxicologic, infection, hypoglycemia, electrolyte abnormalities, cardiac sources, intracerebral event, neurologic, trauma, as well as other pathologies. MEDICAL DECISION MAKIN-year-old female presents emergency room with complaints of Overdose. Patient alert and interactive upon arrival to the emergency room. patient watched on end-tidal with no desaturations. Was able to drink in the emergency room. Patient troponin elevated with EKG changes. Spoke with her about results and plan for admission, she is agreeable. Spoke with hospitalist, they will admit. Consultation(s): Hospitalist ER Treatment Provided: See below Diagnostics Interpreted By Me: -ECG: EKG shows sinus bradycardia at a rate [address] changes, T wave inversions in lead III, aVF, anterior lateral leads. some ST flattening. -Cardiac Monitoring: An order was placed for continuous cardiac monitoring. The monitor shows a rate of 55 with NS rhythm. -Laboratory studies: As stated above and show below. -Imaging studies: CXR - no acute changes Triage Nursing Note Reviewed Prior/Outside Records Reviewed Past Med/Surg History Problem List (Updated 05/01/25 @ 15:37 by Lo Schaffer DO) Hypokalemia (Acute) Elevated troponin (Acute) Accidental heroin overdose (Acute) Substance use disorder Currently maintained on Methadone, following with [facility] Bacterial sinusitis Encounter for screening and preventative care Urinary symptom or sign Concern about STD in female without diagnosis Abscess of left thigh Routine health maintenance Anxiety and depression Vaginal pain Hx of hysterectomy 03-12-[address] Vega Painful defecation Pain, coccyx Abdominal pain (Acute) Appendicitis (Acute) Elevated blood pressure reading (Acute) Laceration of right little finger (Acute) Headache (Acute) Encounter for screening for respiratory tuberculosis (Acute) Left flank pain Back pain Nephrolithiasis Encounter for pre-operative examination Acute sinusitis (Acute) Carpal tunnel syndrome of left wrist Exposure to COVID-19 virus Nasal congestion Cough Fatigue COVID-19 (Acute) Bacterial vaginosis Medical History Seizure Pulmonary nodule Urinary tract infection GERD (gastroesophageal reflux disease) Suicidal ideations COVID-19 Post traumatic stress disorder Migraine Kidney stones Surgical History History of cystoscopy History of lithotripsy History of wisdom tooth extraction History of laparoscopy S/P dilation and curettage History of tubal ligation History of appendectomy Family History Grandmother Breast cancer Myocardial infarction Father Diabetes Aunt Ovarian cancer Denies family history of Prostate cancer Social History Smoking Status: Light tobacco smoker Tobacco Type: Cigarettes and E-cigarettes / Vaping Age Started Using Tobacco: 18; packs per day: 0.25; Cigarettes Per Day: 4-5 CIGS A DAY-advised; Second Hand Exposure: Yes (BOYFRIEND SMOKES); Do You Dip or Chew Tobacco: No; Hx Alcohol Use: Yes Alcohol type: hard liquor Alcohol Intake Frequency: Monthly or Less Alcohol Intake Frequency Comment: Social drinker Hx Substance Use: No Preferred Language: Montserratian Communication Ability: Effective Visual Impairment: No Limitations Hearing Ability: Normal Policy Analyst Required: No Beliefs That Will Affect Care: None marital status: Current Living Situation: Family and Significant Other current occupational status: unemployed Feels Safe at Home: Yes Childhood Exposure to Second-Hand Smoke: No Diet: regular caffeine: Yes during the past year weight has: remained stable Dental Care, Regularly: No Physical Activity Frequency: Daily Seatbelt Use: always Sunscreen Use: Yes Do you think of yourself as: straight/heterosexual Sexual Activity: has been sexually active within the last 12 months Gender Identity: Female Assistive Devices: None Allergies Allergies Allergy/AdvReac Type Severity Reaction Status Date / Time morphine Allergy Severe SEVERE Verified 03/12/25 14:08 HEADACHES AND NECK PAIN Penicillins Allergy Intermediate HIVES, Verified 03/12/25 14:08 NAUSEA codeine AdvReac Intermediate NAUSEA, Verified 03/12/25 14:08 VOMITING Home Meds Previous Rx's Medication Instructions Recorded medical marijuana See Rx Instructions PO DAILY PRN 03/16/23 Depression and Anxiety #1 units bupropion HCl 150 mg 24 hr tablet, 150 mg PO QPM #30 tabs 07/28/25 extended release bupropion HCl 300 mg 24 hr tablet, 300 mg PO QAM #30 tabs 12/08/24 extended release fluconazole 150 mg tablet 150 mg PO Q3D 2 doses #2 tabs 03/12/25 fluocinonide 0.05 % topical 1 applic topical DAILY PRN rash 03/16/25 ointment #15 grams Results & Data (ED) Laboratory Data 05/01/25 14:40 05/01/25 14:40 Lab Results 05/01/25 Range/Units 14:40 WBC 5.90 (4.8-10.8) K/ul RBC 5.24 (4.20-5.40) M/uL Hgb 15.8 (12.0-16.0) g/dL Hct 44.1 (37.0-47.0) % MCV 84.2 (80.0-100.0) fL MCH 30.2 (25.0-34.0) pg MCHC 35.8 (32.0-36.0) g/dL RDW Std Deviation 36.3 L (36.4-46.3) fL RDW Coeff of Tomás 11.9 (11.5-14.5) % Plt Count 232 (130-400) K/uL MPV 9.4 (9.4-12.4) fL Immature Gran % (Auto) 0.7 % Neut % (Auto) 57.5 % Lymph % (Auto) 30.8 % Butler % (Auto) 8.8 % Eos % (Auto) 1.5 % Baso % (Auto) 0.7 % Neut # (Auto) 3.39 (1.40-6.50) K/uL Lymph # (Auto) 1.82 (1.20-3.40) K/uL Butler # (Auto) 0.52 (0.11-0.59) K/uL Eos # (Auto) 0.09 (0.00-0.50) K/uL Baso # (Auto) 0.04 (0.00-0.20) K/uL Immature Gran # (Auto) 0.04 (0.01-0.20) K/uL Sodium 134 L (136-145) mmol/L Potassium 2.8 L (3.5-5.1) mmol/L Chloride 89 L (98-107) mmol/L Carbon Dioxide 37 H (21-32) mmol/L Anion Gap 8 (3-11) BUN 23 (6-23) mg/dl Creatinine 1.25 H (0.6-1.2) mg/dl Est Cr Clr Drug Dosing Not Reportable eGFR 56.23 BUN/Creatinine Ratio 18.4 (10-20) Glucose 134 H (70-99(Fasting)) mg/dl Calcium 9.8 (8.6-10.3) mg/dl Total Bilirubin 0.9 (0.2-1.0) mg/dl AST 28 (13-39) U/L ALT 46 (7-52) U/L Alkaline Phosphatase 66 (34-104) U/L Troponin I High Sens 36.8 H (0-14) pg/ml Total Protein 7.3 (6.0-8.3) gm/dl Albumin 4.3 (3.4-5.0) gm/dl Globulin 3.0 (2.5-4.0) gm/dl Albumin/Globulin Ratio 1.4 (0.9-2) Lipase 5 L (11-82) U/L HCG, Qual Negative (Negative) Administered Medications Discontinued Medications Sodium Chloride (Nss) 1,000 mls @ 999 mls/hr IV .Q1H1M ZOLTAN Stop: 05/01/25 15:45 Last Admin: 05/01/25 15:39 Dose: 999 mls/hr Documented By: destini Imaging Data Radiologist's Impression: Chest X-Ray 05/01/25 14:34 XR chest 1V portable HISTORY: 39 years-old Female Chest pain, nonspecific COMPARISON: Chest CT 08/26/2021 TECHNIQUE: AP view of the chest FINDINGS: Cardiomediastinal and hilar silhouettes are within normal limits. No pneumothorax, pleural effusion, airspace consolidation or pulmonary edema. Nipple shadows project over the lung bases. Mild left-sided rotator cuff calcific tendinosis. IMPRESSION: No acute process. ACT 112: Negative or not required by law. The above report was generated using voice recognition software. It may contain grammatical, syntax or spelling errors. Electronically signed by: Shun Pringle M.D. 05/01/2025 2:59 PM Discharge Plan Visit Data Chief Complaint: Overdose (Intentional) Stated Complaint: drug overdose ED Provider: Schaffer,Ol A Discharge Problem: Accidental heroin overdose, Elevated troponin, Hypokalemia Patient Disposition: Admitted As Inpatient Condition: Fair Forms Stand Alone Forms: My [facility], Suicide Prevention Resources Prescriptions Prescriptions: No Action medical marijuana See Rx Instructions PO DAILY PRN (Reason: Depression and Anxiety) Qty: 1 0RF Rx Instructions: orally daily PRN; bupropion HCl 300 mg tablet extended release 24 hr 300 mg PO QAM Qty: 30 0RF bupropion HCl 150 mg tablet extended release 24 hr 150 mg PO QPM Qty: 30 0RF fluocinonide 0.05 % ointment 1 applic topical DAILY PRN (Reason: rash) Qty: 15 2RF fluconazole 150 mg tablet 150 mg PO Q3D Qty: 2 0RF Rx Instructions: may repeat second dose 72 hrs after first dose if symptoms persist Referrals Referrals: Laya Vance MD [Primary Care Provider] -
[2025-05-01 14:55] LABS: Hematocrit (blood only) 44.1 % (37.0-47.0); Hemoglobin 15.8 g/dL (12.0-16.0); Immature Granulocytes # (auto) 0.04 K/uL (0.01-0.20); Immature Granulocytes % (auto) 0.7 %; Mean Corpuscular Hemoglobin 30.2 pg (25.0-34.0); Mean Corpuscular Volume 84.2 fL (80.0-100.0); Platelet Count 232 K/uL (130-400); RDW Standard Deviation 36.3 fL (36.4-46.3); Red Blood Count 5.24 M/uL (4.20-5.40); White Blood Count 5.90 K/ul (4.8-10.8)
--- NOTE | 2025-05-01 15:00 | XRay Report ---
XR chest 1V portable HISTORY: 39 years-old Female Chest pain, nonspecific COMPARISON: Chest CT 08/26/2021 TECHNIQUE: AP view of the chest FINDINGS: Cardiomediastinal and hilar silhouettes are within normal limits. No pneumothorax, pleural effusion, airspace consolidation or pulmonary edema. Nipple shadows project over the lung bases. Mild left-side d rotator cuff calcific tendinosis. IMPRESSION: No acute process. ACT 112: Negative or not required by law. The above report was generated using voice recognition software. It may contain grammatical, syntax o r spelling errors. Electronically signed by: Shun Pringle M.D. 05/01/2025 2:59 PM
[2025-05-01 15:11] LABS: Alanine Aminotransferase 46 U/L (7-52); Albumin Globulin Ratio 1.4 (0.9-2); Albumin Level 4.3 gm/dl (3.4-5.0); Alkaline Phosphatase 66 U/L (34-104); Anion Gap 8 (3-11); Bilirubin,Total 0.9 mg/dl (0.2-1.0); Blood Urea Nitrogen 23 mg/dl (6-23); Calcium 9.8 mg/dl (8.6-10.3); Carbon Dioxide 37 mmol/L (21-32); Chloride 89 mmol/L (98-107); Globulin 3.0 gm/dl (2.5-4.0); Glucose 134 mg/dl (70-99(Fasting)); Lipase 5 U/L (11-82); Potassium 2.8 mmol/L (3.5-5.1); Sodium 134 mmol/L (136-145); Total Protein 7.3 gm/dl (6.0-8.3)
[2025-05-01 15:29] LABS: Pregnancy Test, Serum Negative (Negative)
[2025-05-01] MEDS: SODIUM CHLORIDE 0.9% 1,000 ML IV SCH (15:39)
--- NOTE | 2025-05-01 16:08 | History & Physical Report ---
Date of Service May 01, 2025 Assessment & Plan (1) Accidental heroin overdose: Plan: ?Accidental overdose - Patient was hypotensive and with a altered affect on scene per EMS. Was offered ER evaluation to which she was agreeable. Per EMS report did not receiv e any type of chest compressions or Narcan. This may have been administered by state police per EMS arrival, by report she received 2 mg of intranasal Narcan although patient denies this and reports she remembers the event. Can attempt to clarify with state police when on-duty trooper is available tomorrow unfortunately was no longer on duty and notes do not expressly state whether or not this was given to Susana. Story is slightly obfuscated as state police and EMS were called for her boyfriend as a welfare check and was also brought in Sodium 124 Potassium 2.8, repleted Bicarb 37 Anion gap 8 Creatinine 1.25, baseline less than 1 High sensitive troponin 36.8. Repeat and trend pending. Echo pending. She has no chest pain AST/ALT are normal Elevated troponin Sinus bradycardia, QTc 441. Nonspecific anterior lateral T wave inversions. No ST segment changes greater than 1 mm. Compared to prior anterior lateral T waves are now inverted. Museum pending High sensitive troponin 36.8. Repeat pending. Trend pending. Echo pending. She has no chest pain She reports that she has a low blood pressure usually in the 90s at baseline, and a generally slow heart rate. She reports that she did use intranasal heroin earlier this morning, denies substance use since. Per report may have received 2 mg of intranasal Narcan however she denies this. Reports no substance use since this morning. At the bedside when she moves she has chronotropic response with heart rate improving up to the mid 60s. Blood pressure improved to 103/65. She appears clinically dry and endorses she is not eating or drinking very much. 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 If she develops symptomatic bradycardia not responsive to Narcan then follow-up with atropine and consult overnight provider for further evaluation and ongoing medical management versus TC pacing Hx of opioid abuse -She is interested in going to rehab on discharge. CM consult Confirmed with psychology medical that she takes 53 mg methadone in the morning, 47 mg in the evening Due to concern for some lingering narcosis bradycardia will hold her evening dose of methadone and reevaluate in the morning. She is not showing any withdrawal symptoms at time of admission. 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 Discussed w the [facility] nursing to ensure that belongings are either locked or searched, and to monitor for things being brought in by any visitors End-tidal monitoring overnight DVT prophylaxis: Lovenox CODE STATUS: Full code Disposition: PCU (2) Substance use disorder: (3) Hypokalemia: History of Present Illness Primary Care Provider: Laya Vance MD 39-year-old female who presents to the ER with an intentional overdose. Per Sign Out: Patient was with boyfriend who was on the phone with his counseling. he stopped responding and was seen via welfare check and found him brought to the hospital by EMS (he was [facility] EMS) She recieved intranasal narcan. Friend reported xanax pill on scene, and alcohol nearby. Susana is seen at the bedside. She awakens easily per her report She reports she is working on getting clean. Sleeping. She reports she answered the door, but was sleeping when the welfare check came so it took her a few minutes to answer the door "Noone was there for me, were called for my boyfriend" but her blood pressure was low and they suggest she get checked out to which she is agreeable. She reports she did not receive any Narcan and last received Narcan in February. She reports at no point was she unresponsive and she did not receive CPR at any point. Endorses heroin snorted it this morning around 6am. Used about half an inch of a line. Goes around 12 hours before She is on 100mg of methadone daily as a split dose AM/PM. Has been going to [place] [facility] for 3 months. 4 days clean. Belly hurt and used. Last IV drug use about nine months ago. Denies other recreational drug use. Has a medical marijuana use. Denies alcohol use. Denies recent benzo use. Used xanax in the past, but none in the last 12 months. Takes Wellbutrin 300mg morning and 150mg at night. Denies history of medical problems No history of heart problems. No history of endocarditis No history of kidney problems NO history of diabetes No history of blood clots No chest pain No fever or chills. I scold in the room No shortness of breath No abdominal pain No diarrhea Denies SI/HI. Reports that she had dealt with this a very long time ago more than a year but has not had any intention to self-harm or harm others. She reports she feels comfortable reaching out to providers if this were develop and she did not intend to overdose, she reports she snorts heroin to help treat her withdrawal symptoms but is trying to get clean through to the methadone clinic. Medical History: Reviewed Medications: Reviewed Surgical History: Reviewed Family history: Reviewed Allergies: Reviewed. Thought she was allergic to PCN, but recently tried amoxicillin and worked well with no reactions. Code Status: Full Due to differences in story between initial triage report and patient story did attempt to obtain collateral from [place] police. Unfortunately her care was not covered and notes available, and trooper on scene was not able to be contacted and other on duty troopers were not aware of the events that had transpired. Was able to discuss care with S crew. Per their report confirmed that Susana did take some time but answered the door on her own. She reported she was sleeping. They did not administer any Narcan. Her blood pressure was low at the scene was suggested she be evaluated to which she was agreeable. With patient permission did confirm methadone dose from [facility]. They confirm that she is on methadone 53 mg in the morning 47 mg in the evening, she did not receive her evening dose yesterday Allergies Allergy/AdvReac Type Severity Reaction Status Date / Time morphine Allergy Severe SEVERE Verified 03/12/25 14:08 HEADACHES AND NECK PAIN codeine AdvReac Intermediate NAUSEA, Verified 03/12/25 14:08 VOMITING Home Medications Medication Instructions Recorded Confirmed Type medical marijuana See Rx Instructions PO DAILY PRN 03/16/23 05/01/25 Rx Depression and Anxiety #1 units bupropion HCl 150 mg 24 hr tablet, 150 mg PO QPM #30 tabs 12/08/24 05/01/25 Rx extended release bupropion HCl 300 mg 24 hr tablet, 300 mg PO QAM #30 tabs 12/08/24 05/01/25 Rx extended release fluocinonide 0.05 % topical 1 applic topical DAILY PRN rash 03/16/25 05/01/25 Rx ointment #15 grams Past Med/Surg History Problem List (Updated 05/01/25 @ 15:37 by Lo Schaffer DO) Hypokalemia (Acute) Elevated troponin (Acute) Accidental heroin overdose (Acute) Substance use disorder Currently maintained on Methadone, following with [facility] Bacterial sinusitis Encounter for screening and preventative care Urinary symptom or sign Concern about STD in female without diagnosis Abscess of left thigh Routine health maintenance Anxiety and depression Vaginal pain Hx of hysterectomy 03-12-[address] Vega Painful defecation Pain, coccyx Abdominal pain (Acute) Appendicitis (Acute) Elevated blood pressure reading (Acute) Laceration of right little finger (Acute) Headache (Acute) Encounter for screening for respiratory tuberculosis (Acute) Left flank pain Back pain Nephrolithiasis Encounter for pre-operative examination Acute sinusitis (Acute) Carpal tunnel syndrome of left wrist Exposure to COVID-19 virus Nasal congestion Cough Fatigue COVID-19 (Acute) Bacterial vaginosis Medical History Seizure Pulmonary nodule Urinary tract infection GERD (gastroesophageal reflux disease) Suicidal ideations COVID-19 Post traumatic stress disorder Migraine Kidney stones Surgical History History of cystoscopy History of lithotripsy History of wisdom tooth extraction History of laparoscopy S/P dilation and curettage History of tubal ligation History of appendectomy Family History Grandmother Breast cancer Myocardial infarction Father Diabetes Aunt Ovarian cancer Denies family history of Prostate cancer Social History Smoking Status: Light tobacco smoker Tobacco Type: Cigarettes and E-cigarettes / Vaping Age Started Using Tobacco: 18; packs per day: 0.25; Cigarettes Per Day: 4-5 CIGS A DAY-advised; Second Hand Exposure: Yes (BOYFRIEND SMOKES); Do You Dip or Chew Tobacco: No; Hx Alcohol Use: Yes Alcohol type: hard liquor Alcohol Intake Frequency: Monthly or Less Alcohol Intake Frequency Comment: Social drinker Hx Substance Use: No Preferred Language: Faroese Communication Ability: Effective Visual Impairment: No Limitations Hearing Ability: Normal Freight Associate Required: No Beliefs That Will Affect Care: None marital status: Current Living Situation: Family and Significant Other current occupational status: unemployed Feels Safe at Home: Yes Childhood Exposure to Second-Hand Smoke: No Diet: regular caffeine: Yes during the past year weight has: remained stable Dental Care, Regularly: No Physical Activity Frequency: Daily Seatbelt Use: always Sunscreen Use: Yes Do you think of yourself as: straight/heterosexual Sexual Activity: has been sexually active within the last 12 months Gender Identity: Female Assistive Devices: None Physical Exam Physical Exam: General: Sleeping on entry to room. Awakens easily at bedside. No acute distress. Slightly fatigued appearing but alert and oriented x 3. HEENT: Atraumatic, normocephalic. Pupils equal and reactive to light. Pulm: CTAB A&P. -wheezes, -rales, -rhonchi. Symmetrical chest rise. No increased work of breathing. No respiratory distress. Cardiac: Regular, bradycardic. When being in the bed she is chronotropic response with heart rate moving to the 50s. BP 103/65. no murmurs rubs or gallops. Radial pulses intact and symmetrical. Abdominal: Nontender, nondistended, soft. BS present. Skin: Warm, dry. No piloerection. Extremities: Moves all extremities equally. 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 Sensation soft touch intact in hands and feet bilaterally without asymmetry. Radial pulses intact. Cap refill is less than 2 seconds PG Care Time/CCT Total # of Minutes Spent Total Time Spent with Patient: Total time spent is greater than 50% in coordination of care (as documented) at patient's floor/unit and/or counseling patient: Coding Level of Care Code 25580 INT INP/OBS CARE 375MIN Diagnoses Accidental heroin overdose T40.1X1A Substance use disorder F19.90 Hypokalemia E87.6
[2025-05-01 16:09] VITALS: TEMP 97.9
[2025-05-01 16:34] LABS: Acetaminophen < 3 ug/ml (10-30); Salicylate < 3.0 mg/dl (3.0-30)
[2025-05-01 17:07] LABS: Amphetamines+Metham, Urine Neg (Neg); MDMA (Ecstacy), Urine Pos (Neg); Marijuana, Urine Pos (Neg)
[2025-05-01] MEDS: POTASSIUM CHLORIDE CRTAB 20 MEQ TABCR PO STA (17:23)
[2025-05-01] MEDS: LACTATED RINGER'S 1,000 ML IV ONE (17:29)
[2025-05-01] MEDS ORDERED: NALOXONE HCL 0.4 MG/1 ML VIAL/CARP IV PRN (17:43)
--- NOTE | 2025-05-01 18:24 | Electrocardiogram Report ---
Test Reason : Blood Pressure : */* mmHG Vent. Rate : 55 BPM Atrial Rate : 55 BPM P-R Int : 132 ms QRS Dur : 88 ms QT Int : 476 ms P-R-T Axes : 41 77 28 degrees QTcB Int : 456 ms Sinus bradycardia Abnormal ECG When compared with ECG of 25-Feb-2024 02:36, Nonspecific T wave abnormality now evident in Inferolateral leads Confirmed by Larry Lewis ([id number]) on 05/01/2025 6:24:18 PM Referred By: Confirmed By: Larry Lewis
[2025-05-01] MEDS: POTASSIUM CHLORIDE CRTAB 20 MEQ TABCR PO SCH (18:41)
[2025-05-01 19:28] VITALS: O2SAT 98
[2025-05-01 19:31] LABS: Base Excess VBG 8.8 mEq/L; HCO3 VBG 37 mmol/L; Oxygen Saturation VBG < 60.0 %; PCO2 VBG 65 mmHg (38-50); PO2 VBG < 20 mmHg; pH VBG 7.36 (7.36-7.41)
[2025-05-01] MEDS ORDERED: ACETAMINOPHEN 325 MG TAB PO PRN (19:37)
[2025-05-01 19:54] LABS: Anion Gap 6.0 (3-11); Blood Urea Nitrogen 18.0 mg/dl (6-23); Calcium 8.9 mg/dl (8.6-10.3); Carbon Dioxide 34.0 mmol/L (21-32); Chloride 96.0 mmol/L (98-107); Creatinine Clr Calc Pharmacy 53.1 ml/min; Glucose 93.0 mg/dl (70-99(Fasting)); Magnesium 2.2 mg/dl (1.7-2.4); Potassium 2.8 mmol/L (3.5-5.1); Sodium 136.0 mmol/L (136-145)
[2025-05-01 20:32] VITALS: BP 138/81; PULSE 88; RESP 16
--- NOTE | 2025-05-01 20:42 | Communication Note ---
Date of Service: May 01, 2025 Notified by RN in ED of patient asking to leave AMA. Went to discuss with patient. Patient found to be sitting up in bed, awake, alert, and oriented, and in NAD. Patient voiced her wish to have the IV removed an go home because her IV was painful, "her kids are at home and there is a fireplace that is on", also voiced frustration due to "not having anything to eat for hours and having to wait 20 minutes to get some water". Patient states she has low concern for withdrawal sxs becoming too severe since she was already withdrawing at home and is "almost through it", which she states is the reason of her lab findings since she was not able to have PO intake over the last week. Discussed possible risks of returning home such as experiencing opioid withdrawal sxs which may turn severe or lethal. Also discussed other options such as staying overnight for symptoms management since she voiced feeling the best she has in days, but patient deferred. Patient voiced understanding and was able to repeat what was discussed in terms of risks of returning home.
[2025-05-01] MEDS ORDERED: HEPARIN SOD 5,000 UNIT/0.5 ML VIAL SQ SCH (22:00)
== END 2025-05-01 20:47 | disposition left against medical advice (07) | DRG 918 ==
LOC: ED 14:23 → EDINP 17:43
DX: R79.89 Other specified abnormal findings of blood chemistry; F17.290 Nicotine dependence, other tobacco product, uncomplicated; F12.90 Cannabis use, unspecified, uncomplicated; Z79.899 Other long term (current) drug therapy; F17.210 Nicotine dependence, cigarettes, uncomplicated; Z88.5 Allergy status to narcotic agent; E87.6 Hypokalemia; F11.10 Opioid abuse, uncomplicated; T40.1X1A Poisoning by heroin, accidental (unintentional), initial encounter